=== PATIENT | female | born 1960 | race Caucasian/White ===

== ENCOUNTER 2021-07-26 06:52 | Emergency (ER) | payer BC ==
[~2021-07-26] VITALS: Ht 172.7 cm; Wt 62.1 kg
[2021-07-26] MEDS ORDERED: KETOROLAC 30MG VIAL (30MG/ML) IVP ONE (07:30)
[2021-07-26] MEDS ORDERED: 0.9%NACL 1000ML 1,000 ML IV ONE (07:30)
[2021-07-26] MEDS ORDERED: ONDANSETRON 4MG INJ IVP ONE (07:30)
[2021-07-26 07:43] LABS: BASOPHILS % (AUTO) 0.3 % (0.0-5.0); EOSINOPHILS % (AUTO) 0.3 % (0.0-8.0); HEMATOCRIT 41.8 % (36-48); LYMPHOCYTES % (AUTO) 10.5 % (21.0-51.0); MEAN CORPUSCULAR HEMOGLOBIN 32.8 pg (27.0-33.0); MEAN CORPUSCULAR HGB CONC 33.5 g/dL (32.0-36.0); MEAN CORPUSCULAR VOLUME 97.9 fL (79-99); MONOCYTES % (AUTO) 7.2 % (3.0-13.0); NEUTROPHILS % (AUTO) 81.3 % (40.0-77.0); PLATELET COUNT (AUTO) 220 K/uL (130-400); RED BLOOD CELL COUNT(AUTO) 4.27 MIL/uL (4.00-5.50); RED CELL DISTRIBUTION WIDTH 12.4 % (11.0-15.5)
[2021-07-26 07:52] LABS: APPEARANCE,URINE CLOUDY (CLEAR); BILIRUBIN,URINE NEGATIVE (NEGATIVE); COLOR,URINE YELLOW (YELLOW); GLUCOSE, URINE (UA) NEGATIVE (NEGATIVE); KETONES,URINE NEGATIVE (NEGATIVE); LEUKOCYTE ESTERASE ,URINE LARGE (NEGATIVE); NITRATE,URINE POSITIVE (NEGATIVE); OCCULT BLOOD,URINE LARGE (NEGATIVE); PROTEIN,URINE 100 mg/dL (NEGATIVE); UROBILINOGEN,URINE 0.2 mg/dL (0.2-1.0)
[2021-07-26 08:01] LABS: BACTERIA,URINE Many /HPF (None Seen); RBC,URINE 26-50 /HPF (0-1); SQUAMOUS EPITHELIAL CELL,UR 0-2 /HPF (0-2); WBC,URINE TNTC /HPF (0-1)
[2021-07-26 08:05] LABS: ALBUMIN 3.9 g/dL (3.5-5.0); BILIRUBIN,TOTAL 0.5 mg/dL (0.2-1.0); POTASSIUM 4.3 mmol/L (3.5-5.1); TOTAL PROTEIN, SERUM 7.6 g/dL (6.0-8.3)
[2021-07-26 09:18] VITALS: BP 99/67
[2021-07-26] MEDS ORDERED: CEPH500B PO (09:29)
[2021-07-26] MEDS ORDERED: TRAM50TA4 PO (09:29)
[2021-07-26] MEDS ORDERED: CEFTRIAXONE 1G VIAL IVP SCH (09:30)
== END 2021-07-26 09:48 | disposition home or self-care (01) ==
LOC: EDH 06:52
DX: N10 Acute pyelonephritis (principal); Z88.5 Allergy status to narcotic agent; Z85.3 Personal history of malignant neoplasm of breast; Z79.899 Other long term (current) drug therapy; Z79.1 Long term (current) use of non-steroidal anti-inflammatories (NSAID)
CPT/HCPCS: 36415; 74176; 80053; 81001; 83690; 85025; 87077; 87088; 87186; 96361; 96374; 96375; 99284; J0696; J1885; J2405; J7030